=== PATIENT | female | born 2000 | race Two or more races ===

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

== ENCOUNTER 2022-03-26 07:24 | Emergency (ER) | payer MEDICAID ==
[~2022-03-26] VITALS: Ht 177.8 cm; Wt 67.5 kg
[2022-03-26 08:06] LABS: Basophils # (auto) 0 10 ^3/uL (0-0.2); Basophils % (auto) 0.4 % (0.0-2.0); Eosinophils # (auto) 0.1 10 ^3/uL (0-0.8); Eosinophils % (auto) 1.1 % (0.0-7.0); Hemoglobin 13.7 g/dL (12.2-16.2); Lymphocytes # (auto) 3.7 10 ^3/uL (0.4-5.4); Lymphocytes % (auto) 39.9 % (10.0-50.0); Mean Corpuscular Hemoglobin 31.2 pg (28.0-32.0); Mean Corpuscular Hgb Conc. 35.2 g/dL (32.0-36.0); Mean Corpuscular Volume 88.8 fL (80.0-100.0); Monocytes # (auto) 0.6 10 ^3/uL (0-1.3); Neutrophils # (auto) 4.8 10 ^3/uL (1.6-8.6); Neutrophils % (auto) 51.6 % (37.0-80.0); Nucleated Red Blood Cells % 0.1 %; White Blood Cell 9.2 10^3/uL (4.4-10.8)
[2022-03-26 08:17] LABS: Albumin 3.9 g/dL (3.4-5.0); Potassium 3.8 mmol/L (3.5-5.1)
[2022-03-26 08:22] LABS: BUN/Creatinine Ratio 22.8; Bilirubin, Total 0.4 mg/dL (0.2-1.0); Total Protein 6.9 g/dL (6.4-8.2)
[2022-03-26 09:04] LABS: Urine Specific Gravity 1.028 (1.001-1.035)
[2022-03-26 09:05] LABS: Urine Blood Trace /uL (Negative); Urine WBC 51 /hpf (0 - 5)
[2022-03-26 09:06] LABS: Urine Bacteria MODERATE /hpf (None Seen); Urine Mucus FEW (None Seen)
[2022-03-26] MEDS ORDERED: KETOROLAC TROMETH 30 MG/ML 1ML VIAL IM ONE (10:00)
[2022-03-26] MEDS ORDERED: CEPH-322 PO (10:05)
[2022-03-26 10:15] VITALS: BP 127/78
== END 2022-03-26 10:22 | disposition home or self-care (01) ==
LOC: ER 07:24
DX: K80.20 Calculus of gallbladder without cholecystitis without obstruction (principal); N39.0 Urinary tract infection, site not specified; K76.0 Fatty (change of) liver, not elsewhere classified; Z32.02 Encounter for pregnancy test, result negative
CPT/HCPCS: 36415; 76705; 80053; 81001; 81025; 83690; 85025; 96372; 99284; J1885

== ENCOUNTER 2022-04-10 06:39 | Emergency (ER) | payer MEDICAID ==
[~2022-04-10] VITALS: Ht 154.9 cm; Wt 66.8 kg
[~2022-04-10 06:39] MED LIST: CEPH-322 PO
[2022-04-10 07:02] VITALS: BP 115/76
[2022-04-10 07:19] LABS: Basophils # (auto) 0.1 10 ^3/uL (0-0.2); Basophils % (auto) 0.6 % (0.0-2.0); Eosinophils # (auto) 0.1 10 ^3/uL (0-0.8); Eosinophils % (auto) 0.6 % (0.0-7.0); Hematocrit 46.1 % (36.0-46.0); Hemoglobin 15.3 g/dL (12.2-16.2); Lymphocytes # (auto) 3.5 10 ^3/uL (0.4-5.4); Lymphocytes % (auto) 29.7 % (10.0-50.0); Mean Corpuscular Hemoglobin 29.8 pg (28.0-32.0); Mean Corpuscular Hgb Conc. 33.1 g/dL (32.0-36.0); Mean Corpuscular Volume 89.9 fL (80.0-100.0); Monocytes # (auto) 0.6 10 ^3/uL (0-1.3); Monocytes % (auto) 4.9 % (0.0-12.0); Neutrophils # (auto) 7.5 10 ^3/uL (1.6-8.6); Neutrophils % (auto) 64.2 % (37.0-80.0); Nucleated Red Blood Cells % 0.1 %; Red Blood Cells 5.13 10^6/uL (4.0-5.20); Red Cell Distribution Width 12.4 % (11.8-14.3); White Blood Cell 11.7 10^3/uL (4.4-10.8)
[2022-04-10 07:38] LABS: Albumin 4.4 g/dL (3.4-5.0); Calcium 9.5 mg/dL (8.5-10.1); Potassium 3.3 mmol/L (3.5-5.1)
[2022-04-10 07:41] LABS: BUN/Creatinine Ratio 18.2; Bilirubin, Total 0.4 mg/dL (0.2-1.0); Total Protein 8.6 g/dL (6.4-8.2)
[2022-04-10 07:44] LABS: Urine Amorphous Crystal FEW /hpf (None Seen); Urine Bacteria FEW /hpf (None Seen); Urine Blood Negative /uL (Negative); Urine Specific Gravity 1.023 (1.001-1.035); Urine WBC 16 /hpf (0 - 5)
[2022-04-10] MEDS ORDERED: HYDROcodone-ACET 5/325MG TAB PO ONE (08:30)
[2022-04-10] MEDS ORDERED: CEPH-322 PO (11:25)
== END 2022-04-10 15:35 | disposition home or self-care (01) ==
LOC: ER 06:39
DX: K80.20 Calculus of gallbladder without cholecystitis without obstruction (principal); N39.0 Urinary tract infection, site not specified; Z90.49 Acquired absence of other specified parts of digestive tract
CPT/HCPCS: 36415; 76705; 80053; 81001; 81025; 83690; 85025

== ENCOUNTER 2023-04-05 12:32 | Emergency (ER) | payer MEDICAID ==
[~2023-04-05] VITALS: Ht 154.9 cm; Wt 68.1 kg
[~2023-04-05 12:32] MED LIST changes: -CEPH-322 PO; +CEPH250C PO
[2023-04-05] MEDS ORDERED: LIDOCAINE 1% HCL (LOCAL ANESTH.) INJ 20ML MDV IJ ONE (13:30)
[2023-04-05 13:36] VITALS: BP 143/85; PULSE 84; RESP 18; TEMP 98.7; O2SAT 99
[2023-04-05] MEDS ORDERED: cefTRIAXone SOD 1,000 MG VL IM ONE (13:45)
[2023-04-05] MEDS ORDERED: NAPR-746 PO (13:48)
[2023-04-05] MEDS ORDERED: BACDST PO (13:48)
== END 2023-04-05 14:05 | disposition home or self-care (01) ==
LOC: ER 12:32
DX: L02.01 Cutaneous abscess of face (principal)
CPT/HCPCS: 10060; 96372; 99283; J0696; J2001

== ENCOUNTER 2023-08-16 13:50 | Emergency (ER) | payer MEDICAID ==
[~2023-08-16] VITALS: Ht 154.9 cm; Wt 67.3 kg
[~2023-08-16 13:50] MED LIST changes: +BACDST PO; +NAPR-746 PO
[2023-08-16 14:28] VITALS: BP 138/93; PULSE 89; RESP 16; TEMP 98.5; O2SAT 99
[2023-08-16] MEDS ORDERED: CEPH500C PO (15:58)
== END 2023-08-16 16:01 | disposition home or self-care (01) ==
LOC: ER 13:50
DX: N61.1 Abscess of the breast and nipple (principal)
CPT/HCPCS: 76642